=== PATIENT | male | born 1960 ===

== ENCOUNTER → 2019-01-12 | Outpatient (REF) ==
--- NOTE | 2019-01-12 16:25 | REP ---
Clinical: Pain and disability. Technique: AP, lateral, coned-down views of the lumbosacral spine. Findings: Marked advanced multilevel degenerative disc osteophyte complexes are appreciated. Evidence for infrarenal abdominal aortic aneurysm measuring approximately 6 cm maximal diameter. Impression: 1. Infrarenal abdominal aortic aneurysm measuring 6 cm diameter requires further investigation. 2. Advanced/severe multilevel degenerative changes of the lumbosacral spine. Electronically Signed by Wilder Pisano MD 01/12/2019 04:16 P
== END ==
LOC: M SMT 15:35
PROVIDERS: ATTEND Internal Medicine
DX: Z00.00 Encounter for general adult medical examination without abnormal findings (principal)